=== PATIENT | female | born 1970 | race Caucasian/White ===

== ENCOUNTER 2016-07-04 04:06 | Emergency (ER) | payer BC ==
[~2016-07-04 04:06] MED LIST: EQUATE ACID REDUCER; FLAG500TAB PO; K500 PO; LANTUS SC; LORTAB 5 PO; NOVLOGPUMP SC; VASOTEC10 PO; ZOVIRAXCR TOP
== END 2016-07-04 04:15 | disposition home or self-care (01) ==
LOC: ER 04:06
DX: K08.89 Other specified disorders of teeth and supporting structures (principal); I10 Essential (primary) hypertension; F17.200 Nicotine dependence, unspecified, uncomplicated; E11.9 Type 2 diabetes mellitus without complications; Z88.1 Allergy status to other antibiotic agents; Z88.2 Allergy status to sulfonamides; Z79.1 Long term (current) use of non-steroidal anti-inflammatories (NSAID); Z79.899 Other long term (current) drug therapy
CPT/HCPCS: 99283; A9270-GY